=== PATIENT | male | born 1980 | race Caucasian/White ===

== ENCOUNTER 2025-02-25 18:11 | Inpatient (IN) | payer MEDICAID, OTHER, SELFPAY ==
[2025-02-25 18:25] VITALS: BP 103/67; PULSE 90; RESP 16; TEMP 36.9; O2SAT 97
[2025-02-25 18:46] VITALS: BMI 21.3
[2025-02-25 20:00] VITALS: BP 115/58; PULSE 71; RESP 18; TEMP 37.1; O2SAT 97
--- NOTE | 2025-02-26 00:43 | PC.ADMIT ---
Gianni is a 44 year old male that arrived from [facility] and signed in on a CV. Patient originally went to the hospital in [place] because he was having some anxiety and depression and was feeling unsafe. Called 911 himself from [place]. Patient reported that he had an attempt years ago by overdose. Patient UTOX was positive for cocaine. Patient is HIV positive and reported that he has not been taking any of his medications in years. Patient is homeless. When nurse attempted to assess patient, patient was sleeping and did not wish to engage at that time. Information was taken from assessment done at [facility]. Patient placed on 15 minute safety checks.
[2025-02-26 07:00] VITALS: BMI 21.3
[2025-02-26 08:00] VITALS: BP 102/57; PULSE 62; RESP 20; TEMP 36.7; O2SAT 96
--- NOTE | 2025-02-26 08:17 | P.CONHOSP_ITS ---
History of Present Illness Data of Consult Service Date: 02/26/25 Primary Care Provider: None Physician HPI Reason for consult: Medical consult 45-year-old male with past medical history of depression, anxiety, HIV presented to [facility] Emergency department with suicidal ideation. He reports he has been off of his HIV medications since July, previously took Biktarvy. Patient reports he has been neglecting his health due to his substance use disorder. On exam he has no medical concerns. Labs revealed no electrolyte imbalances, hemoglobin A1c within normal limits. His TSH is 10.22. Tox screen positive for cocaine. Denies any history of hypothyroidism. Patient is weepy on exam. Review of Systems 2 Review of Systems: Denies any shortness of breath, chest pain, headaches, dysuria, abdominal pain or discomfort, nausea, vomiting or diarrhea. Denies fever or chills. PMFSH Social History Household Members: None Housing: Homeless Do you presently have visiting nurse or other home services: No Patient Tobacco Use Status: Former Tobacco user Smoked in Last 30 Days: No Patient Interested in Nicotine Replacement: No Patient Given Instructions on How to Stop Smoking: No Second Hand Smoke Exposure: Yes Currently Displaying Signs/Symptoms of Drug Intoxication Withdrawal: No Do you feel safe in your current relationship?: No Current Relationship Spiritual Healthcare Practices: none reported Faith Healthcare Practices: none reported Cultural Healthcare Practices: none reported Advance Directives: No Advance Directives Information Provided: Yes Do you have thoughts of harming others: None Do you have a plan to hurt others: No Plan Recently lost weight without trying: Unsure How much weight loss: Unsure Eating poorly because of decreased appetite: No Nutrition screen score: 4 Nutrition Risks: No Nutritional Risk Poor oral hygiene: No service: No Sexual orientation: Don't Know Meds Allergies Allergy/AdvReac Type Severity Reaction Status Date / Time No Known Allergies Allergy Verified 02/25/25 18:18 Active Medications: Current Medications Acetaminophen (Acetaminophen 325 Mg Tablet) 650 mg PO Q6H PRN PRN Reason: Headache/Pain, Scale 1-10 Al Hydroxide/Mg Hydroxide (Magnesium Hydrox/Alum Hydrox 30 Ml Oral.Susp) 30 ml PO Q6H PRN PRN Reason: Heartburn/Nausea Hydroxyzine HCl (Hydroxyzine Hcl 25 Mg Tablet) 25 mg PO Q6H PRN PRN Reason: mild anxiety Magnesium Hydroxide (Milk Of Magnesia 30 Ml Oral.Susp) 30 ml PO DAILY PRN PRN Reason: Constipation Nicotine (Nicotine 21 Mg Patch.Td24) 21 mg TRANSDERMA DAILY PRN PRN Reason: nicotine craving Nicotine Polacrilex (Nicotine Polacrilex 2 Mg Gum) 2 mg BUCCAL Q2H PRN PRN Reason: Nicotine Cravings Olanzapine (Olanzapine 5 Mg Tablet) 5 mg PO BID PRN PRN Reason: agitation Trazodone HCl (Trazodone Hcl 50 Mg Tablet) 50 mg PO BEDTIME MRX1 PRN PRN Reason: Insomnia Home Medications ?Medication ?Instructions ?Recorded ?Confirmed ?Last Taken ?Type No Known Home Meds 02/25/25 02/25/25 Un known History Physical Exam 2 Vital Signs and Narrative: Vital Signs: Last Vital Signs Temp 98.8 F 02/25/25 20:00 Pulse 71 02/25/25 20:00 Resp 18 02/25/25 20:00 BP 115/58 L 02/25/25 20:00 Pulse Ox 97 02/25/25 20:00 O2 Del Method Room Air 02/25/25 20:00 BMI result Body Mass Index 21.3 Alert and oriented X3, clam and cooperative. Answers questions. Weepy Neuro: CN II-X11 intact, no deficits, visual acuity intact EYES: PERRLA, EOM intact ENT: Hearing intact, MMM Cardiac: S1 S2 RRR, No ectopy Pulmonary: lungs clear to auscultation, No increased WOB. Abdominal: BS active in all 4 quadrants, no guarding or tenderness MSK: Strength 5/5 upper and lower extremities : Deferred Extremities: No edema in lower extremities Psych: Weepy, despondant Skin: Warm and dry, Intact Results Labs 02/26/25 07:53 Assessment and Plan (1) Hypothyroidism: Status: Acute Plan 44-year-old male admitted to inpatient psych for further treatment of anxiety and depression after presenting to the ED with suicidal ideation. Depression/anxiety/substance abuse Treatment per psych team Abnormal TSH/hypothyroidism TSH 10.2 to low normal free T4 Repeat to confirm, anti TPO antibodies added Start levothyroxine 25 mcg daily repeat check levels in 4-6 weeks HIV Patient previously followed by [facility] Multiple social issues including homelessness and substance abuse Has not been taking his medications since July Previously on Biktarvy would like to get back on his medication. Consult ID Thank you for allowing me to participate in the care of this patient. Will follow with you, please notify medical provider with any changes in condition or concerns.
[2025-02-26 08:28] LABS: Alanine Aminotransferase 26 U/L (0-40); Albumin Level 3.8 g/dL (3.5-5.0); Alkaline Phosphatase 85 U/L (39-117); Anion Gap 10 (12-20); Aspartate Amino Transferase 41 U/L (5-37); Blood Urea Nitrogen 15 mg/dL (9-16); Calcium 8.6 mg/dL (8.4-10.2); Carbon Dioxide 27 mmol/L (22-29); Chloride 107 mmol/L (96-108); Cholesterol 121 mg/dL (<200); Creatinine Clr Calc Pharmacy 98.7; Estimated Glomerular Filt Rate > 60; HDL Cholesterol 35 mg/dL (>40); Potassium 4.3 mmol/L (3.3-5.1); Sodium 140 mmol/L (135-145); Total Protein 6.5 g/dL (6.5-8.0); Triglycerides 73 mg/dL (<150)
[2025-02-26 08:44] LABS: Free T4 (Free Thyroxine) 0.85 ng/dL (0.71-1.85); Thyroid Stimulating Hormone 10.22 uIU/mL (0.32-4.0)
--- NOTE | 2025-02-26 08:57 | HO.PSYADMNOT ---
HPI Date of Service: 02/26/25 Chief Complaint: depressive d/o Sources of Information: patient interviewed, chart reviewed and crisis/core team assessment reviewed HPI Subjective Notes: [place] Warning and Conditional Voluntary Narrative: Patient is a 44 year old male with hx of MDD, anxiety and cocaine use d/o, who presented to ER via ambulance d/t suicidal ideation secondary to increased stress from his ride not picking me up . Per crisis report, patient transported to ER from [facility] after calling 911 in distress because the person who was supposed to pick him up never showed. Patient stated, [place] was [place] day and my ride never came . He states he called 911 because I am feeling very unsafe . Patient was very minimally engaged. When asked to elaborate patient became agitated and stated, I do not know, I do not want to talk about it . Patient reports prior attempt of SA via fentanyl overdose did not per provide timeframe. Patient denies HI/VH/AH. History of 1 detox admission 2 years ago. Utox positive for cocaine. During admission assessment, pt presents alert and oriented x4. calm and cooperative. Patient reports feeling depressed ; pt stated, I have no one here. I have no support. I feel like a loser. Everything is difficult. Winter is coming and I have no home . Patient reports he stopped taking his medications for HIV in July because I was using drugs again ; patient reports he was also taking psychiatric medications but can not remember names or dosages. No medications were in the Prescription monitoring program list or in home medication hx. Patient reports he would like to get into a substance abuse program. He reports a little bit when asked about suicidal ideation; denies HI/VH/AH. Patient reports he does not have outpatient psychiactric providers. hx of SA via overdose on fentanyl few times . hx of SIB via cutting. Patient reports his appetite as fine . Patient reports requiring Trazodone to sleep. Past Psychiatric History: Patient reports he does not have outpatient psychiatric providers. hx of SA via overdose on fentanyl few times . hx of SIB via cutting. hx of multiple inpatient psychiatric admissions. Medical Evaluation Reviewed: Yes PMF Family History: denies Social History: Homeless. Single. No kids. Unemployed. Substance History: Patient reports using a lot of cocaine daily. utox positive for cocaine. denies any other substance use. Trauma History: denies Diagnostics Vital Signs (24Hr): Vital Signs - 24 hr 02/25/25 18:25 02/25/25 20:00 02/26/25 08:00 Temperature 98.5 F 98.8 F 98.1 F Pulse Rate 90 71 62 Respiratory Rate 16 18 20 Blood Pressure 103/67 115/58 L 102/57 L Pulse Oximetry 97 97 96 Oxygen Delivery Method Room Air Room Air Room Air BMI result Body Mass Index 21.3 Labs 02/26/25 07:53 Labs: Laboratory Results - last 48 hr 02/26/25 07:53 Sodium 140 Potassium 4.3 Chloride 107 Carbon Dioxide 27 Anion Gap 10 L BUN 15 Creatinine 0.80 Estim Creat Clear Calc 98.7 Estimated GFR > 60 Random Glucose 96 Estimat Average Glucose 97 Hemoglobin A1c % 5.0 Calcium 8.6 Total Bilirubin 0.4 AST 41 H ALT 26 Alkaline Phosphatase 85 Total Protein 6.5 Albumin 3.8 Triglycerides 73 Cholesterol 121 LDL Cholesterol, Calc 72 HDL Cholesterol 35 L TSH 10.22 H Free T4 0.85 Meds/Allergies Meds Home Medications ?Medication ?Instructions ?Recorded ?Confirmed ?Type No Known Home Meds 02/25/25 02/25/25 History Allergies Allergies Allergy/AdvReac Type Severity Reaction Status Date / Time No Known Allergies Allergy Verified 02/25/25 18:18 Mental Status Exam Mental Status Exam Patient Appearance: Disheveled Patient Orientation: Person, Place, Time and Situation Level of Consciousness: Awake Patient Behavior: Guarded and Cooperative Mood Description: Depressed Affect Description: Depressed Ability to Follow Directions: Good Speech Pattern: Clear Memory Description: Intact Hallucinations: None Delusions: Not Present Thought Process: Intact Thought Content: positive for Intact Assessment & Plan Assessment & Plan (1) MDD (major depressive disorder), recurrent episode: Status: Acute Code(s): F33.9 - Major depressive disorder, recurrent, unspecified (2) Cocaine use disorder: Status: Acute Code(s): F14.10 - Cocaine abuse, uncomplicated Plan Patient is a 44 year old male with hx of MDD, anxiety and cocaine use d/o, who presented to ER via ambulance d/t suicidal ideation secondary to increased stress from his ride not picking me up . Plan: CV 15 minute safety checks referral to outpatient psychiatric providers encourage groups discharge planning Patient educated on: diagnosis and medication risk/benefits Reason for continued inpatient stay Substantial Risk for: med/psych decompensation Statement Statement: I have reviewed the history and physical and performed a pertinent examination on my patient. No changes have occurred unless specified. If the History and Physical was not performed prior to admission, the Hospitalist's service will be consulted for completing the admission physical. Time Spent With Patient Time: Total time managing care of this patient today _60___ minutes.
[2025-02-26] MEDS: Nicotine 21 MG PATCH.TD24 TRANSDERMA (09:14)
--- NOTE | 2025-02-26 15:27 | PC.NURSE ---
Call placed to [facility] to obtain med list. [phone]. Information taken by nurse Bossman to call back.
[2025-02-26 20:00] VITALS: BP 103/55; PULSE 64; RESP 16; TEMP 36.2; O2SAT 98
[2025-02-27 07:29] VITALS: BP 111/58; PULSE 70; RESP 16; TEMP 37.1; O2SAT 96
[2025-02-27] MEDS: Nicotine 21 MG PATCH.TD24 TRANSDERMA (08:23)
--- NOTE | 2025-02-27 09:25 | P.PNPSI_ITS ---
Subjective Subjective Date of Service: 02/27/25 Reason For Visit: depressive d/o Subjective Notes: Conditional Voluntary Interim History: Tearful. Patient reports feeling depressed ; pt stated, I'm worried about going to skilled nursing. My life if not easy. I got arrested last Sunday for drugs. I hate going through all this again . denies SI/HI/VH. He reports auditory hallucinations telling him to harm himself. Restarted on home medications; nursing was able to verify with outpatient pharmacy. Continue tx plan. Medication Compliance: Yes Side effects from medications: No Attending Groups: No Mental Status Exam Mental Status Exam Narrative: Pt is alert and oriented; behavior is cooperative and calm; dressed in casual attire; mood is described as depressed ; eye contact appropriate; Speech is normal rate, volume and not pressured; thought process is organized; Thought content is on tx; denies SI/HI/VH. +AH Diagnostics Vital Signs (24Hr): Vital Signs - 24 hr 02/26/25 20:00 02/27/25 07:29 Temperature 97.2 F 98.7 F Pulse Rate 64 70 Respiratory Rate 16 16 Blood Pressure 103/55 L 111/58 L Pulse Oximetry 98 96 Oxygen Delivery Method Room Air Room Air BMI result Body Mass Index 21.3 Labs 02/26/25 07:53 Labs: Laboratory Results - last 48 hr 02/26/25 02/26/25 07:53 15:44 Sodium 140 Potassium 4.3 Chloride 107 Carbon Dioxide 27 Anion Gap 10 L BUN 15 Creatinine 0.80 Estim Creat Clear Calc 98.7 Estimated GFR > 60 Random Glucose 96 Estimat Average Glucose 97 Hemoglobin A1c % 5.0 Calcium 8.6 Total Bilirubin 0.4 AST 41 H ALT 26 Alkaline Phosphatase 85 Total Protein 6.5 Albumin 3.8 Triglycerides 73 Cholesterol 121 LDL Cholesterol, Calc 72 HDL Cholesterol 35 L TSH 10.22 H 8.45 H Free T4 0.85 Medications Medications Current Medications Acetaminophen (Acetaminophen 325 Mg Tablet) 650 mg PO Q6H PRN PRN Reason: Headache/Pain, Scale 1-10 Al Hydroxide/Mg Hydroxide (Magnesium Hydrox/Alum Hydrox 30 Ml Oral.Susp) 30 ml PO Q6H PRN PRN Reason: Heartburn/Nausea Hydroxyzine HCl (Hydroxyzine Hcl 25 Mg Tablet) 25 mg PO Q6H PRN PRN Reason: mild anxiety Last Admin: 02/26/25 12:41 Dose: 25 mg Levothyroxine Sodium (Levothyroxine Sodium 25 Mcg Tablet) 25 mcg PO DAILY@0600 TYESHA Last Admin: 02/27/25 08:24 Dose: 25 mcg Magnesium Hydroxide (Milk Of Magnesia 30 Ml Oral.Susp) 30 ml PO DAILY PRN PRN Reason: Constipation Nicotine (Nicotine 21 Mg Patch.Td24) 21 mg TRANSDERMA DAILY PRN PRN Reason: nicotine craving Last Admin: 02/27/25 08:23 Dose: 21 mg Nicotine Polacrilex (Nicotine Polacrilex 2 Mg Gum) 2 mg BUCCAL Q2H PRN PRN Reason: Nicotine Cravings Olanzapine (Olanzapine 5 Mg Tablet) 5 mg PO BID PRN PRN Reason: agitation Last Admin: 02/26/25 12:41 Dose: 5 mg Trazodone HCl (Trazodone Hcl 50 Mg Tablet) 50 mg PO BEDTIME MRX1 PRN PRN Reason: Insomnia Allergies Allergies Allergy/AdvReac Type Severity Reaction Status Date / Time No Known Allergies Allergy Verified 02/25/25 18:18 Assessment & Plan Assessment & Plan (1) MDD (major depressive disorder), recurrent episode: Status: Acute Code(s): F33.9 - Major depressive disorder, recurrent, unspecified (2) Cocaine use disorder: Status: Acute Code(s): F14.10 - Cocaine abuse, uncomplicated (3) Hypothyroidism: Status: Acute Code(s): E03.9 - Hypothyroidism, unspecified Plan Patient is a 44 year old male with hx of MDD, anxiety and cocaine use d/o, who presented to ER via ambulance d/t suicidal ideation secondary to increased stress from his ride not picking me up . Plan: CV 15 minute safety checks referral to outpatient psychiatric providers encourage groups discharge planning 02/27: Tearful. Patient reports feeling depressed ; pt stated, I'm worried about going to skilled nursing. My life if not easy. I got arrested last Sunday for drugs. I hate going through all this again . denies SI/HI/VH. He reports auditory hallucinations telling him to harm himself. Restarted on home medications; nursing was able to verify with outpatient pharmacy. Continue tx plan. Patient educated on: diagnosis, medication risk/benefits and therapeutic strategies Reason for continued inpatient stay Substantial Risk for: med/psych decompensation Time Spent With Patient Time: Total time managing care of this patient today _20___ minutes.
[2025-02-27] MEDS: Bictegrav/Emtricit/Tenofov Ala TABLET 1 TAB PO (11:49)
[2025-02-27 20:00] VITALS: BP 108/57; PULSE 75; RESP 16; TEMP 37.1; O2SAT 95
[2025-02-28 07:41] VITALS: BP 117/70; PULSE 69; RESP 16; TEMP 36.6; O2SAT 99
[2025-02-28] MEDS: Bictegrav/Emtricit/Tenofov Ala TABLET 1 TAB PO (09:10)
[2025-02-28] MEDS: Nicotine 21 MG PATCH.TD24 TRANSDERMA (09:10)
--- NOTE | 2025-02-28 14:58 | HO.PSYCHPN ---
Subjective Subjective Date of Service: 02/28/25 Reason For Visit: depressive d/o Subjective Notes: Conditional Voluntary Interim History: Laying in bed. Guarded. patient reports feeling okay today; pt stated, I'm not anxious or depressed ; difficult to engage today. denies SI/HI/VH/AH. encouraged to attend groups. Continue tx plan. Medication Compliance: Yes Side effects from medications: No Attending Groups: No Mental Status Exam Mental Status Exam Narrative: Pt is alert and oriented; behavior is cooperative and calm; dressed in casual attire; mood is described as okay ; eye contact appropriate; Speech is normal rate, volume and not pressured; thought process is organized; Thought content is on tx; denies SI/HI/VH/AH. Diagnostics Vital Signs (24Hr): Vital Signs - 24 hr 02/27/25 20:00 02/28/25 07:41 Temperature 98.8 F 97.8 F Pulse Rate 75 69 Respiratory Rate 16 16 Blood Pressure 108/57 L 117/70 Pulse Oximetry 95 99 Oxygen Delivery Method Room Air Room Air BMI result Body Mass Index 21.3 Labs 02/26/25 07:53 Labs: Laboratory Results - last 48 hr 02/26/25 15:44 TSH 8.45 H Thyroid Peroxidase Ab 73 H Medications Medications Current Medications Acetaminophen (Acetaminophen 325 Mg Tablet) 650 mg PO Q6H PRN PRN Reason: Headache/Pain, Scale 1-10 Al Hydroxide/Mg Hydroxide (Magnesium Hydrox/Alum Hydrox 30 Ml Oral.Susp) 30 ml PO Q6H PRN PRN Reason: Heartburn/Nausea Bictegravir/Emtricitabine/Tenofovir (Bictegrav/Emtricit/Tenofov Ala Tablet) 1 tab PO DAILY [facility] Last Admin: 02/28/25 09:10 Dose: 1 tab Hydroxyzine HCl (Hydroxyzine Hcl 25 Mg Tablet) 25 mg PO Q6H PRN PRN Reason: mild anxiety Last Admin: 02/27/25 11:03 Dose: 25 mg Levothyroxine Sodium (Levothyroxine Sodium 25 Mcg Tablet) 25 mcg PO DAILY@0600 [facility] Last Admin: 02/28/25 06:10 Dose: 25 mcg Magnesium Hydroxide (Milk Of Magnesia 30 Ml Oral.Susp) 30 ml PO DAILY PRN PRN Reason: Constipation Nicotine (Nicotine 21 Mg Patch.Td24) 21 mg TRANSDERMA DAILY PRN PRN Reason: nicotine craving Last Admin: 02/28/25 09:10 Dose: 21 mg Nicotine Polacrilex (Nicotine Polacrilex 2 Mg Gum) 2 mg BUCCAL Q2H PRN PRN Reason: Nicotine Cravings Olanzapine (Olanzapine 5 Mg Tablet) 5 mg PO BID PRN PRN Reason: agitation Last Admin: 02/27/25 15:59 Dose: 5 mg Olanzapine (Olanzapine 10 Mg Tablet) 10 mg PO BEDTIME TYESHA Last Admin: 02/27/25 21:17 Dose: 10 mg Sertraline HCl (Sertraline Hcl 100 Mg Tablet) 100 mg PO DAILY [facility] Last Admin: 02/28/25 09:09 Dose: 100 mg Trazodone HCl (Trazodone Hcl 50 Mg Tablet) 50 mg PO BEDTIME MRX1 PRN PRN Reason: Insomnia Allergies Allergies Allergy/AdvReac Type Severity Reaction Status Date / Time No Known Allergies Allergy Verified 02/25/25 18:18 Assessment & Plan Assessment & Plan (1) MDD (major depressive disorder), recurrent episode: Status: Acute Code(s): F33.9 - Major depressive disorder, recurrent, unspecified (2) Cocaine use disorder: Status: Acute Code(s): F14.10 - Cocaine abuse, uncomplicated (3) Hypothyroidism: Status: Acute Code(s): E03.9 - Hypothyroidism, unspecified Plan Patient is a 44 year old male with hx of MDD, anxiety and cocaine use d/o, who presented to ER via ambulance d/t suicidal ideation secondary to increased stress from his ride not picking me up . Plan: CV 15 minute safety checks referral to outpatient psychiatric providers encourage groups discharge planning 02/27: Tearful. Patient reports feeling depressed ; pt stated, I'm worried about going to shelter. My life if not easy. I got arrested last Sunday for drugs. I hate going through all this again . denies SI/HI/VH. He reports auditory hallucinations telling him to harm himself. Restarted on home medications; nursing was able to verify with outpatient pharmacy. Continue tx plan. 02/28: Laying in bed. Guarded. patient reports feeling okay today; pt stated, I'm not anxious or depressed ; difficult to engage today. denies SI/HI/VH/AH. encouraged to attend groups. Continue tx plan. Patient educated on: diagnosis and medication risk/benefits Reason for continued inpatient stay Substantial Risk for: med/psych decompensation Time Spent With Patient Time: Total time managing care of this patient today _15___ minutes.
[2025-02-28 20:00] VITALS: BP 125/60; PULSE 77; RESP 16; TEMP 37.1; O2SAT 95
--- NOTE | 2025-02-28 21:59 | W.PM.IDCN ---
History of Present Illness Data of Consult Service Date: 02/27/25 Requesting physician: Frederick Sheehan Primary Care Provider: None Physician HPI Reason for consult: HIV positive He presents to ER from [facility] where he presented with suicidal ideation. He is a patient of [facility] and was diagnosed with HIV in 2009 ,possible sexual exposure ( patient was reticent to offer details at this time). He was transferred here for psychiatric care. He was diagnosed with HIV in 2009 and had been on Reyataz /Kaletra and mentions no drug resistance. He also denies opportunistic infections or problems with medication or adherence. He is homeless and doesnt want to go back to [place]. He says he is a [place] immigrant. Review of Systems Review of Systems: Yes all other systems are reviewed and are negative PMFSH Past Medical History Medical History (Updated 02/28/25 @ 22:05 by Corie Forrest MD) HIV (human immunodeficiency virus infection) Family History Family history: reviewed and not pertinent Social History Social History Household Members: None Housing: Homeless Do you presently have visiting nurse or other home services: No Patient Tobacco Use Status: Former Tobacco user Smoked in Last 30 Days: No Patient Interested in Nicotine Replacement: No Patient Given Instructions on How to Stop Smoking: No Second Hand Smoke Exposure: Yes Currently Displaying Signs/Symptoms of Drug Intoxication Withdrawal: No Do you feel safe in your current relationship?: No Current Relationship Spiritual Healthcare Practices: none reported [facility] Practices: none reported Cultural Healthcare Practices: none reported Advance Directives: No Advance Directives Information Provided: Yes Do you have thoughts of harming others: None Do you have a plan to hurt others: No Plan Recently lost weight without trying: Unsure How much weight loss: Unsure Eating poorly because of decreased appetite: No Nutrition screen score: 4 Nutrition Risks: No Nutritional Risk Poor oral hygiene: No service: No Sexual orientation: Don't Know Meds Allergies Allergy/AdvReac Type Severity Reaction Status Date / Time No Known Allergies Allergy Verified 02/25/25 18:18 Active Medications: Current Medications Acetaminophen (Acetaminophen 325 Mg Tablet) 650 mg PO Q6H PRN PRN Reason: Headache/Pain, Scale 1-10 Al Hydroxide/Mg Hydroxide (Magnesium Hydrox/Alum Hydrox 30 Ml Oral.Susp) 30 ml PO Q6H PRN PRN Reason: Heartburn/Nausea Bictegravir/Emtricitabine/Tenofovir (Bictegrav/Emtricit/Tenofov Ala Tablet) 1 tab PO DAILY [facility] Last Admin: 02/28/25 09:10 Dose: 1 tab Hydroxyzine HCl (Hydroxyzine Hcl 25 Mg Tablet) 25 mg PO Q6H PRN PRN Reason: mild anxiety Last Admin: 02/28/25 15:26 Dose: 25 mg Levothyroxine Sodium (Levothyroxine Sodium 25 Mcg Tablet) 25 mcg PO DAILY@0600 [facility] Last Admin: 02/28/25 06:10 Dose: 25 mcg Magnesium Hydroxide (Milk Of Magnesia 30 Ml Oral.Susp) 30 ml PO DAILY PRN PRN Reason: Constipation Nicotine (Nicotine 21 Mg Patch.Td24) 21 mg TRANSDERMA DAILY PRN PRN Reason: nicotine craving Last Admin: 02/28/25 09:10 Dose: 21 mg Nicotine Polacrilex (Nicotine Polacrilex 2 Mg Gum) 2 mg BUCCAL Q2H PRN PRN Reason: Nicotine Cravings Olanzapine (Olanzapine 5 Mg Tablet) 5 mg PO BID PRN PRN Reason: agitation Last Admin: 02/27/25 15:59 Dose: 5 mg Olanzapine (Olanzapine 10 Mg Tablet) 10 mg PO BEDTIME [facility] Last Admin: 02/28/25 20:33 Dose: 10 mg Sertraline HCl (Sertraline Hcl 100 Mg Tablet) 100 mg PO DAILY [facility] Last Admin: 02/28/25 09:09 Dose: 100 mg Trazodone HCl (Trazodone Hcl 50 Mg Tablet) 50 mg PO BEDTIME MRX1 PRN PRN Reason: Insomnia Home Medications ?Medication ?Instructions ?Recorded ?Confirmed ?Last Taken ?Type bictegravir 50 mg-emtricitabine 1 tab PO DAILY 02/27/25 02/27/25 Unknown History 200 mg-tenofovir alafenam 25 mg tablet (Biktarvy) levothyroxine 25 mcg tablet 25 mcg PO DAILY 02/27/25 02/27/25 Unknown History olanzapine 10 mg tablet (Zyprexa) 10 mg PO BEDTIME 02/27/25 02/27/25 Unknown History prazosin 2 mg capsule 8 mg PO BEDTIME 02/27/25 02/27/25 Unknown History sertraline 100 mg tablet (Zoloft) 100 mg PO DAILY 02/27/25 02/27/25 Unknown History trazodone 100 mg tablet 200 mg PO BEDTIME 02/27/25 02/27/25 Unknown History Physical Exam Vital Signs: Vital Signs: Last Vital Signs Temp 97.8 F 02/28/25 07:41 Pulse 69 02/28/25 07:41 Resp 16 02/28/25 07:41 BP 117/70 02/28/25 07:41 Pulse Ox 99 02/28/25 07:41 O2 Del Method Room Air 02/28/25 07:41 BMI result Body Mass Index 21.3 Const: General: cooperative HEENT: Head: Yes normal to inspection Face and sinus: Yes normal facial exam Mouth: Normal oral and palatal mucosa present Teeth and gingiva: dentition normal Eyes: General: appearance normal, both eyes and all related structures Pupils: Equal, round and reactive pupils present Resp: Effort & Inspection: normal respiratory effort Cardio: Rate: regular rate Rhythm: regular rhythm GI: Palpation (GI): Soft to palpation and nontender : General: Yes no CVA tenderness Back/Spine/Pelvis: Back: no CVA tenderness Skin: General skin exam: no rashes or lesions noted Neuro: General: moves all extremities Cranial nerves: Yes Equal, round and reactive pupils present Extrem: General: Yes normal to inspection Psych: Appearance: grossly normal Results Labs 02/26/25 07:53 Assessment and Plan (1) MDD (major depressive disorder), recurrent episode: Status: Acute (2) Cocaine use disorder: Status: Acute (3) HIV (human immunodeficiency virus infection): Status: Acute Plan Check CD4 count. He has been off Biktarvy since July so viral load likely will be high. Restart Biktarvy Check CD4 count and start Bactrim DS daily if less than 200 protect against PJP and toxoplasmosis. There are no restrictions on type of psychiatric medication he can receive. Flu shot if hasnt received already, I can follow if remains in [place], I gave card to patient.
[2025-03-01 08:00] VITALS: BP 107/59; PULSE 65; RESP 16; TEMP 36.7; O2SAT 97
[2025-03-01 08:25] VITALS: BP 107/59; PULSE 65; RESP 16; TEMP 36.7; O2SAT 97
[2025-03-01] MEDS: Bictegrav/Emtricit/Tenofov Ala TABLET 1 TAB PO (08:39)
--- NOTE | 2025-03-01 12:33 | HO.PSYCHPN ---
Subjective Subjective Date of Service: 03/01/25 Reason For Visit: depressive d/o Subjective Notes: Conditional Voluntary Interim History: Laying in bed most of day.Continues guarded. Irritable edge. patient continues to report feeling okay ; denies SI/HI/VH/AH. encouraged to attend groups; pt stated, I don't want to go to groups ; but did not explain reasoning. Continue tx plan. Medication Compliance: Yes Side effects from medications: No Attending Groups: No Mental Status Exam Mental Status Exam Narrative: Pt is alert and oriented; behavior is cooperative and calm, guarded; dressed in casual attire; mood is described as okay ; eye contact appropriate; Speech is normal rate, volume and not pressured; thought process is organized; Thought content is on discharge; denies SI/HI/VH/AH. Diagnostics Vital Signs (24Hr): Vital Signs - 24 hr 02/28/25 20:00 03/01/25 08:00 03/01/25 08:25 Temperature 98.7 F 98.1 F 98.1 F Pulse Rate 77 65 65 Respiratory Rate 16 16 16 Blood Pressure 125/60 107/59 L 107/59 L Pulse Oximetry 95 97 97 Oxygen Delivery Method Room Air Room Air Room Air BMI result Body Mass Index 21.3 Labs 02/26/25 07:53 Labs: Laboratory Results - last 48 hr 02/26/25 15:44 Thyroid Peroxidase Ab 73 H Medications Medications Current Medications Acetaminophen (Acetaminophen 325 Mg Tablet) 650 mg PO Q6H PRN PRN Reason: Headache/Pain, Scale 1-10 Al Hydroxide/Mg Hydroxide (Magnesium Hydrox/Alum Hydrox 30 Ml Oral.Susp) 30 ml PO Q6H PRN PRN Reason: Heartburn/Nausea Bictegravir/Emtricitabine/Tenofovir (Bictegrav/Emtricit/Tenofov Ala Tablet) 1 tab PO DAILY [facility] Last Admin: 03/01/25 08:39 Dose: 1 tab Hydroxyzine HCl (Hydroxyzine Hcl 25 Mg Tablet) 25 mg PO Q6H PRN PRN Reason: mild anxiety Last Admin: 03/01/25 12:28 Dose: 25 mg Levothyroxine Sodium (Levothyroxine Sodium 25 Mcg Tablet) 25 mcg PO DAILY@0600 [facility] Last Admin: 03/01/25 06:02 Dose: 25 mcg Magnesium Hydroxide (Milk Of Magnesia 30 Ml Oral.Susp) 30 ml PO DAILY PRN PRN Reason: Constipation Nicotine (Nicotine 21 Mg Patch.Td24) 21 mg TRANSDERMA DAILY PRN PRN Reason: nicotine craving Last Admin: 02/28/25 09:10 Dose: 21 mg Nicotine Polacrilex (Nicotine Polacrilex 2 Mg Gum) 2 mg BUCCAL Q2H PRN PRN Reason: Nicotine Cravings Olanzapine (Olanzapine 5 Mg Tablet) 5 mg PO BID PRN PRN Reason: agitation Last Admin: 02/27/25 15:59 Dose: 5 mg Olanzapine (Olanzapine 10 Mg Tablet) 10 mg PO BEDTIME [facility] Last Admin: 02/28/25 20:33 Dose: 10 mg Sertraline HCl (Sertraline Hcl 100 Mg Tablet) 100 mg PO DAILY [facility] Last Admin: 03/01/25 08:39 Dose: 100 mg Trazodone HCl (Trazodone Hcl 50 Mg Tablet) 50 mg PO BEDTIME MRX1 PRN PRN Reason: Insomnia Last Admin: 02/28/25 23:07 Dose: 50 mg Allergies Allergies Allergy/AdvReac Type Severity Reaction Status Date / Time No Known Allergies Allergy Verified 02/25/25 18:18 Assessment & Plan Assessment & Plan (1) MDD (major depressive disorder), recurrent episode: Status: Acute Code(s): F33.9 - Major depressive disorder, recurrent, unspecified (2) Cocaine use disorder: Status: Acute Code(s): F14.10 - Cocaine abuse, uncomplicated (3) HIV (human immunodeficiency virus infection): Status: Acute Code(s): B20 - Human immunodeficiency virus [HIV] disease Plan Patient is a 44 year old male with hx of MDD, anxiety and cocaine use d/o, who presented to ER via ambulance d/t suicidal ideation secondary to increased stress from his ride not picking me up . Plan: CV 15 minute safety checks referral to outpatient psychiatric providers encourage groups discharge planning 02/27: Tearful. Patient reports feeling depressed ; pt stated, I'm worried about going to longterm. My life if not easy. I got arrested last Sunday for drugs. I hate going through all this again . denies SI/HI/VH. He reports auditory hallucinations telling him to harm himself. Restarted on home medications; nursing was able to verify with outpatient pharmacy. Continue tx plan. 02/28: Laying in bed. Guarded. patient reports feeling okay today; pt stated, I'm not anxious or depressed ; difficult to engage today. denies SI/HI/VH/AH. encouraged to attend groups. Continue tx plan. 03/01:Laying in bed most of day.Continues guarded. Irritable edge. patient continues to report feeling okay ; denies SI/HI/VH/AH. encouraged to attend groups; pt stated, I don't want to go to groups ; but did not explain reasoning. Continue tx plan. Patient educated on: diagnosis, medication risk/benefits and therapeutic strategies Reason for continued inpatient stay Substantial Risk for: med/psych decompensation Time Spent With Patient Time: Total time managing care of this patient today _10___ minutes.
[2025-03-02 08:00] VITALS: BP 109/62; PULSE 77; RESP 18; TEMP 36.9; O2SAT 99
[2025-03-02] MEDS: Nicotine 21 MG PATCH.TD24 TRANSDERMA (08:38)
[2025-03-02] MEDS: Bictegrav/Emtricit/Tenofov Ala TABLET 1 TAB PO (08:38)
--- NOTE | 2025-03-02 10:02 | HO.PSYCHPN ---
Subjective Subjective Reason For Visit: depressive d/o Diagnostics Vital Signs (24Hr): Vital Signs - 24 hr 03/02/25 08:00 Temperature 98.5 F Pulse Rate 77 Respiratory Rate 18 Blood Pressure 109/62 Pulse Oximetry 99 Oxygen Delivery Method Room Air BMI result Body Mass Index 21.3 Labs 02/26/25 07:53 Medications Medications Current Medications Acetaminophen (Acetaminophen 325 Mg Tablet) 650 mg PO Q6H PRN PRN Reason: Headache/Pain, Scale 1-10 Al Hydroxide/Mg Hydroxide (Magnesium Hydrox/Alum Hydrox 30 Ml Oral.Susp) 30 ml PO Q6H PRN PRN Reason: Heartburn/Nausea Bictegravir/Emtricitabine/Tenofovir (Bictegrav/Emtricit/Tenofov Ala Tablet) 1 tab PO DAILY [facility] Last Admin: 03/02/25 08:38 Dose: 1 tab Hydroxyzine HCl (Hydroxyzine Hcl 25 Mg Tablet) 25 mg PO Q6H PRN PRN Reason: mild anxiety Last Admin: 03/01/25 12:28 Dose: 25 mg Levothyroxine Sodium (Levothyroxine Sodium 25 Mcg Tablet) 25 mcg PO DAILY@0600 [facility] Last Admin: 03/02/25 06:05 Dose: 25 mcg Magnesium Hydroxide (Milk Of Magnesia 30 Ml Oral.Susp) 30 ml PO DAILY PRN PRN Reason: Constipation Nicotine (Nicotine 21 Mg Patch.Td24) 21 mg TRANSDERMA DAILY PRN PRN Reason: nicotine craving Last Admin: 03/02/25 08:38 Dose: 21 mg Nicotine Polacrilex (Nicotine Polacrilex 2 Mg Gum) 2 mg BUCCAL Q2H PRN PRN Reason: Nicotine Cravings Olanzapine (Olanzapine 5 Mg Tablet) 5 mg PO BID PRN PRN Reason: agitation Last Admin: 03/01/25 16:24 Dose: 5 mg Olanzapine (Olanzapine 10 Mg Tablet) 10 mg PO BEDTIME [facility] Last Admin: 03/01/25 20:04 Dose: 10 mg Sertraline HCl (Sertraline Hcl 100 Mg Tablet) 100 mg PO DAILY [facility] Last Admin: 03/02/25 08:38 Dose: 100 mg Trazodone HCl (Trazodone Hcl 50 Mg Tablet) 50 mg PO BEDTIME MRX1 PRN PRN Reason: Insomnia Last Admin: 02/28/25 23:07 Dose: 50 mg Allergies Allergies Allergy/AdvReac Type Severity Reaction Status Date / Time No Known Allergies Allergy Verified 02/25/25 18:18 Assessment & Plan Assessment & Plan (1) MDD (major depressive disorder), recurrent episode: Status: Acute Code(s): F33.9 - Major depressive disorder, recurrent, unspecified (2) Cocaine use disorder: Status: Acute Code(s): F14.10 - Cocaine abuse, uncomplicated (3) HIV (human immunodeficiency virus infection): Status: Acute Code(s): B20 - Human immunodeficiency virus [HIV] disease Plan Patient is a 44 year old male with hx of MDD, anxiety and cocaine use d/o, who presented to ER via ambulance d/t suicidal ideation secondary to increased stress from his ride not picking me up . Plan: CV 15 minute safety checks referral to outpatient psychiatric providers encourage groups discharge planning 02/27: Tearful. Patient reports feeling depressed ; pt stated, I'm worried about going to longterm. My life if not easy. I got arrested last Sunday for drugs. I hate going through all this again . denies SI/HI/VH. He reports auditory hallucinations telling him to harm himself. Restarted on home medications; nursing was able to verify with outpatient pharmacy. Continue tx plan. 02/28: Laying in bed. Guarded. patient reports feeling okay today; pt stated, I'm not anxious or depressed ; difficult to engage today. denies SI/HI/VH/AH. encouraged to attend groups. Continue tx plan. 03/01:Laying in bed most of day.Continues guarded. Irritable edge. patient continues to report feeling okay ; denies SI/HI/VH/AH. encouraged to attend groups; pt stated, I don't want to go to groups ; but did not explain reasoning. Continue tx plan. Time Spent With Patient Time: Total time managing care of this patient today ____ minutes.
--- NOTE | 2025-03-02 12:53 | P.PNPSI_ITS ---
Subjective Subjective Date of Service: 03/02/25 Reason For Visit: depressive d/o Subjective Notes: Conditional Voluntary Interim History: Active on unit. keeping to self. Observed making multiple phone calls. Patient reports feeling okay but anxious ; pt reports he doesn't know where he plans on going after discharge. [employer] provided patient with shelters in [facility]. Patient reports he plans on getting in contact with his branch lending officer. denies SI/HI/VH/AH. Medication Compliance: Yes Side effects from medications: No Attending Groups: No Mental Status Exam Mental Status Exam Narrative: Pt is alert and oriented; behavior is cooperative and calm; dressed in casual attire; mood is described as okay ; eye contact appropriate; Speech is normal rate, volume and not pressured; thought process is organized; Thought content is on discharge; denies SI/HI/VH/AH. Diagnostics Vital Signs (24Hr): Vital Signs - 24 hr 03/02/25 08:00 Temperature 98.5 F Pulse Rate 77 Respiratory Rate 18 Blood Pressure 109/62 Pulse Oximetry 99 Oxygen Delivery Method Room Air BMI result Body Mass Index 21.3 Labs 02/26/25 07:53 Medications Medications Current Medications Acetaminophen (Acetaminophen 325 Mg Tablet) 650 mg PO Q6H PRN PRN Reason: Headache/Pain, Scale 1-10 Al Hydroxide/Mg Hydroxide (Magnesium Hydrox/Alum Hydrox 30 Ml Oral.Susp) 30 ml PO Q6H PRN PRN Reason: Heartburn/Nausea Bictegravir/Emtricitabine/Tenofovir (Bictegrav/Emtricit/Tenofov Ala Tablet) 1 tab PO DAILY [facility] Last Admin: 03/02/25 08:38 Dose: 1 tab Hydroxyzine HCl (Hydroxyzine Hcl 25 Mg Tablet) 25 mg PO Q6H PRN PRN Reason: mild anxiety Last Admin: 03/02/25 12:28 Dose: 25 mg Levothyroxine Sodium (Levothyroxine Sodium 25 Mcg Tablet) 25 mcg PO DAILY@0600 [facility] Last Admin: 03/02/25 06:05 Dose: 25 mcg Magnesium Hydroxide (Milk Of Magnesia 30 Ml Oral.Susp) 30 ml PO DAILY PRN PRN Reason: Constipation Nicotine (Nicotine 21 Mg Patch.Td24) 21 mg TRANSDERMA DAILY PRN PRN Reason: nicotine craving Last Admin: 03/02/25 08:38 Dose: 21 mg Nicotine Polacrilex (Nicotine Polacrilex 2 Mg Gum) 2 mg BUCCAL Q2H PRN PRN Reason: Nicotine Cravings Olanzapine (Olanzapine 5 Mg Tablet) 5 mg PO BID PRN PRN Reason: agitation Last Admin: 03/01/25 16:24 Dose: 5 mg Olanzapine (Olanzapine 10 Mg Tablet) 10 mg PO BEDTIME [facility] Last Admin: 03/01/25 20:04 Dose: 10 mg Sertraline HCl (Sertraline Hcl 100 Mg Tablet) 100 mg PO DAILY [facility] Last Admin: 03/02/25 08:38 Dose: 100 mg Trazodone HCl (Trazodone Hcl 50 Mg Tablet) 50 mg PO BEDTIME MRX1 PRN PRN Reason: Insomnia Last Admin: 02/28/25 23:07 Dose: 50 mg Allergies Allergies Allergy/AdvReac Type Severity Reaction Status Date / Time No Known Allergies Allergy Verified 02/25/25 18:18 Assessment & Plan Assessment & Plan (1) MDD (major depressive disorder), recurrent episode: Status: Acute Code(s): F33.9 - Major depressive disorder, recurrent, unspecified (2) Cocaine use disorder: Status: Acute Code(s): F14.10 - Cocaine abuse, uncomplicated (3) HIV (human immunodeficiency virus infection): Status: Acute Code(s): B20 - Human immunodeficiency virus [HIV] disease Plan Patient is a 44 year old male with hx of MDD, anxiety and cocaine use d/o, who presented to ER via ambulance d/t suicidal ideation secondary to increased stress from his ride not picking me up . Plan: CV 15 minute safety checks referral to outpatient psychiatric providers encourage groups discharge planning 02/27: Tearful. Patient reports feeling depressed ; pt stated, I'm worried about going to [facility]. My life if not easy. I got arrested last Sunday for drugs. I hate going through all this again . denies SI/HI/VH. He reports auditory hallucinations telling him to harm himself. Restarted on home medications; nursing was able to verify with outpatient pharmacy. Continue tx plan. 02/28: Laying in bed. Guarded. patient reports feeling okay today; pt stated, I'm not anxious or depressed ; difficult to engage today. denies SI/HI/VH/AH. encouraged to attend groups. Continue tx plan. 03/01:Laying in bed most of day.Continues guarded. Irritable edge. patient continues to report feeling okay ; denies SI/HI/VH/AH. encouraged to attend groups; pt stated, I don't want to go to groups ; but did not explain reasoning. Continue tx plan. 03/02: Active on unit. keeping to self. Observed making multiple phone calls. Patient reports feeling okay but anxious ; pt reports he doesn't know where he plans on going after discharge. [employer] provided patient with shelters in [facility]. Patient reports he plans on getting in contact with his branch lending officer. denies SI/HI/VH/AH. Patient educated on: diagnosis and medication risk/benefits Reason for continued inpatient stay Substantial Risk for: stable for discharge Time Spent With Patient Time: Total time managing care of this patient today _20___ minutes.
[2025-03-02 20:00] VITALS: BP 116/58; PULSE 77; RESP 16; TEMP 36.2; O2SAT 97
[2025-03-03 07:10] VITALS: BP 114/58; PULSE 64; RESP 16; TEMP 36.8; O2SAT 98
[2025-03-03] MEDS: Bictegrav/Emtricit/Tenofov Ala TABLET 1 TAB PO (08:34)
[2025-03-03] MEDS: Naloxone HCl Nasal TAKE HOME 4 MG SPRAY 8 MG NOSTRILALT (08:37)
--- NOTE | 2025-03-03 09:25 | PM.PSYDC ---
DS: Providers Provider Date of Service: 03/03/25 Date of admission: 02/25/25 18:11 Date of discharge: 03/03/25 Primary care physician: Fritz Physician Admitting clinician: Zina Armas Attending physician on admission: Frederick Sheehan Consults: 02/25/25 18:21 Consult to Hospitalist Routine Comment: Consulting Provider: [facility] [place] Hospitalists Reason For Exam: New external admit H+P 02/26/25 15:27 Consult to Infectious Diseases Routine Consulting Provider: [facility] [place] [facility] Reason for consultation: HIV off meds Attending physician on discharge: Frederick Sheehan Discharging clinician: Zina Armas DS: Diagnosis Discharge Diagnosis (1) MDD (major depressive disorder), recurrent episode: Status: Acute (2) Cocaine use disorder: Status: Acute (3) HIV (human immunodeficiency virus infection): Status: Acute DS: Medications Discharge Medications Home Medications: Previous Rx's ?Medication ?Instructions ?Recorded bictegravir 50 mg-emtricitabine 1 tab PO DAILY 7 days #7 tabs 03/02/25 200 mg-tenofovir alafenam 25 mg tablet (Biktarvy) levothyroxine 25 mcg tablet 25 mcg PO DAILY@0600 7 days #7 tabs 03/02/25 olanzapine 10 mg tablet 10 mg PO BEDTIME 7 days #7 tabs 03/02/25 sertraline 100 mg tablet 100 mg PO DAILY 7 days #7 tabs 03/02/25 Mental Status Exam Mental Status Exam Narrative: Pt is alert and oriented; behavior is cooperative and calm; dressed in casual attire; mood is described as good ; eye contact appropriate; Speech is normal rate, volume and not pressured; thought process is organized; Thought content is on discharge; denies SI/HI/VH/AH. Data Data Completed and Pending Completed studies during hospitalization [Text1]: 02/26/25 02/26/25 03/02/25 07:53 15:44 07:18 Sodium 140 Potassium 4.3 Chloride 107 Carbon Dioxide 27 Anion Gap 10 L BUN 15 Creatinine 0.80 Estim Creat Clear Calc 98.7 Estimated GFR > 60 Random Glucose 96 Estimat Average Glucose 97 Hemoglobin A1c % 5.0 Calcium 8.6 Total Bilirubin 0.4 AST 41 H ALT 26 Alkaline Phosphatase 85 Total Protein 6.5 Albumin 3.8 Triglycerides 73 Cholesterol 121 LDL Cholesterol, Calc 72 HDL Cholesterol 35 L TSH 10.22 H 8.45 H Free T4 0.85 Thyroid Peroxidase Ab 73 H Lymphocyte Subset Cmmnt Pending Total Lymphocytes Pending % CD3 Cells Pending Absolute CD3 Count Pending % CD4 Cells Pending Absolute CD4 Count Pending CD4/CD8 Ratio Pending % CD8 Cells Pending Absolute CD8 Count Pending DS: Summary Hospital Course Hospital Course: Patient is a 44 year old male with hx of MDD, anxiety and cocaine use d/o, who presented to ER via ambulance d/t suicidal ideation secondary to increased stress from his ride not picking me up . Per crisis report, patient transported to ER from [facility] after calling 911 in distress because the person who was supposed to pick him up never showed. Patient stated, [place] and my ride never came . He states he called 911 because I am feeling very unsafe . Patient was very minimally engaged. When asked to elaborate patient became agitated and stated, I do not know, I do not want to talk about it . Patient reports prior attempt of SA via fentanyl overdose did not per provide timeframe. Patient denies HI/VH/AH. History of 1 detox admission 2 years ago. Utox positive for cocaine. During admission assessment, pt presents alert and oriented x4. calm and cooperative. Patient reports feeling depressed ; pt stated, I have no one here. I have no support. I feel like a loser. Everything is difficult. Winter is coming and I have no home . Patient reports he stopped taking his medications for HIV in July because I was using drugs again ; patient reports he was also taking psychiatric medications but can not remember names or dosages. No medications were in the Prescription monitoring program list or in home medication hx. Patient reports he would like to get into a substance abuse program. He reports a little bit when asked about suicidal ideation; denies HI/VH/AH. Patient reports he does not have outpatient psychiactric providers. hx of SA via overdose on fentanyl few times . hx of SIB via cutting. Patient reports his appetite as fine . Patient reports requiring Trazodone to sleep. Plan: CV 15 minute safety checks referral to outpatient psychiatric providers encourage groups discharge planning [facility]. Patient reports feeling depressed ; pt stated, I'm worried about going to [facility]. My life if not easy. I got arrested last Sunday for drugs. I hate going through all this again . denies SI/HI/VH. He reports auditory hallucinations telling him to harm himself. Restarted on home medications; nursing was able to verify with outpatient pharmacy. Continue tx plan. Laying in bed. Guarded. patient reports feeling okay today; pt stated, I'm not anxious or depressed ; difficult to engage today. denies SI/HI/VH/AH. encouraged to attend groups. Continue tx plan. Laying in bed most of day.Continues guarded. Irritable edge. patient continues to report feeling okay ; denies SI/HI/VH/AH. encouraged to attend groups; pt stated, I don't want to go to groups ; but did not explain reasoning. Continue tx plan. Active on unit. keeping to self. Observed making multiple phone calls. Patient reports feeling okay but anxious ; pt reports he doesn't know where he plans on going after discharge. drug abuse social worker provided patient with shelters in [place], [place] area. Patient reports he plans on getting in contact with his county health officer. denies SI/HI/VH/AH. Patient reports feeling good today; denies SI/HI/VH/AH. He reports feeling ready for discharge . Patient reports he plans on going to the court house and [place] [address] himself. Status at Discharge Cognitive/behavioral status at discharge: Patient has insight and demonstrates good judgment in terms of wanting to pursue treatment. Patient has a safety plan that includes presenting to the closest ER or calling 911 if feeling unsafe. Functional status at discharge: independent ambulation Overall status at discharge: patient is back to baseline Time Spent with Patient Time attestation: Total time managing care of this patient today _20___ minutes. Time spent: Less than 30 minutes Discharge Plan Discharge Anticipated Discharge Date/Time: 03/03/25 10:00 Patient Disposition: Home, Self-Care Discharge Diagnosis: MDD, Cocaine use d/o Referrals: Therapy & Psychiatry [Other] - 1 Week Referral Note: *Please follow up with the agency above regarding outpatient mental health services. Homeless Supports [Other] - 1 Week Referral Note: *Please follow up with the agency above regarding possible homeless [facility] availability in the area. [facility] [Provider Group] - 1 Week Referral Note: 03-02-25 [facility] was added to patients chart. Please call [phone] to schedule your follow up appt within 7-10 days of discharge. No release of PCP on file. Discharge Medications: New olanzapine 10 mg Tablet 10 mg PO BEDTIME 7 Days Qty: 7 0RF Biktarvy 50-200-25 mg Tablet 1 tab PO DAILY 7 Days Qty: 7 0RF sertraline 100 mg Tablet 100 mg PO DAILY 7 Days Qty: 7 0RF levothyroxine 25 mcg Tablet 25 mcg PO DAILY@0600 7 Days Qty: 7 0RF Discontinued levothyroxine 25 mcg Tablet 25 mcg PO DAILY sertraline [Zoloft] 100 mg Tablet 100 mg PO DAILY olanzapine [Zyprexa] 10 mg Tablet 10 mg PO BEDTIME trazodone 100 mg Tablet 200 mg PO BEDTIME prazosin [Minipress] 2 mg Capsule 8 mg PO BEDTIME Biktarvy 50-200-25 mg Tablet 1 tab PO DAILY Discharge Orders: Discharge Order (Routine); Ordered 03/03/25 Ordered By: Zina Armas Diet: Regular diet Activity on Discharge: As tolerated Stand Alone Forms: Patient Portal Discharge page, Community Support Print Language: Swedish Care Plan Goals: Maintain mood and safe behaviors Take medications as prescribed Continue to pursue sobriety Practice coping skills Continue with outpatient providers and reach out to them as needed Health Concerns: Mood stability and behaviors Sobriety Plan of Treatment: Follow up with your PCP, psychiatric provider and other outpatient providers regarding above concerns Take medications as prescribed Assessment: Patient has insight and demonstrates good judgment in terms of wanting to pursue treatment. Patient has a safety plan that includes presenting to the closest ER or calling 911 if feeling unsafe. Discharge Date/Time: 03/03/25 10:25
[2025-03-06 16:28] LABS: Absolute CD3 Count 1365 cells/uL (840-3060); Absolute CD8 Count 1008 cells/uL (180-1170); Percent CD3 Cells 89 % (57-85); Percent CD8 Cells 66 % (12-42)
== END 2025-03-03 10:25 | disposition home or self-care (01) | DRG 751 ==
PROVIDERS: Internal Medicine; Nurse Practitioner Family; Nurse Practitioner Psychiatric/Mental Health; Admitting Provider Psychiatry & Neurology Psychiatry; Responsible Provider Registered Nurse; Visit Provider Psychiatry & Neurology Psychiatry
DX: F33.9 Major depressive disorder, recurrent, unspecified (principal); E03.9 Hypothyroidism, unspecified; Z21 Asymptomatic human immunodeficiency virus [HIV] infection status; F14.10 Cocaine abuse, uncomplicated; Z79.890 Hormone replacement therapy; Z79.899 Other long term (current) drug therapy
CPT/HCPCS: 36415; 80053; 80061; 83036; 84439; 84443; 86359; 86360; 86376

== ENCOUNTER → 2025-02-25 18:11 | Outpatient (BNV) | payer MEDICAID, SELFPAY | PROVIDERS: Admitting Provider Psychiatry & Neurology Psychiatry; Responsible Provider Registered Nurse; Visit Provider Registered Nurse | DX: F33.9 Major depressive disorder, recurrent, unspecified (principal); F14.10 Cocaine abuse, uncomplicated | CPT/HCPCS: 90792; 99232 ==

== ENCOUNTER → 2025-02-25 18:11 | Outpatient (BNV) | payer SELFPAY | PROVIDERS: Admitting Provider Psychiatry & Neurology Psychiatry; Responsible Provider Registered Nurse; Visit Provider Internal Medicine | DX: F33.9 Major depressive disorder, recurrent, unspecified (principal); F14.10 Cocaine abuse, uncomplicated; B20 Human immunodeficiency virus [HIV] disease | CPT/HCPCS: 99222 ==

== ENCOUNTER → 2025-02-25 18:11 | Outpatient (BNV) | payer MEDICAID, SELFPAY | PROVIDERS: Admitting Provider Psychiatry & Neurology Psychiatry; Responsible Provider Registered Nurse; Visit Provider Nurse Practitioner Family | DX: E03.9 Hypothyroidism, unspecified (principal) | CPT/HCPCS: 99221 ==